=== PATIENT | female | born 1980 | race Caucasian/White ===

== ENCOUNTER 2019-03-01 08:21 | Day surgery (SDC) | payer BC ==
[~2019-03-01 08:21] MED LIST: Lactated Ringers 1,000 ML IV ONE; Lactated Ringers 1,000 ML IV SCH
[2019-03-01] MEDS ORDERED: DIPRIVAN 200 MG/20 ML IV ONE (09:35)
[2019-03-01 10:25] VITALS: O2SAT 98
[2019-03-01 11:05] VITALS: BP 108/56; PULSE 55
--- NOTE | 2019-03-17 08:49 | OP ---
PROCEDURE DATE/TIME: 03/01/2019 0939 PREOPERATIVE DIAGNOSIS: Gastroesophageal reflux disease. POSTOPERATIVE DIAGNOSES: 1) Small hiatal hernia. 2) Mild gastritis. 3) Gastroesophageal reflux disease. PROCEDURE: EGD with biopsy. PROCEDURE PERFORMED BY: Janet Farfan M.D. ESTIMATED BLOOD LOSS: Minimal. ANESTHESIA: MAC. SPECIMEN: Antral biopsy. COMPLICATIONS: None. HISTORY: This is a patient who presents with gastroesophageal reflux disease. She also has incisional ventral hernia which will be repaired at a later date as well. Risks, benefits, alternatives regarding EGD, H&P and consent have all been reviewed and confirmed. The patient was seen in the preoperative area. DESCRIPTION OF PROCEDURE: We then did a complete time out. Placed in left lateral decubitus position and carefully advanced the scope into her mouth, oropharynx down into her esophagus, stomach and duodenum. The duodenum was normal. In the stomach she did have some gastritis this was mild, slightly erythematous. Biopsy was taken with cold forceps to rule out Helicobacter pylori. Site was hemostatic. On retroflex view, we did visualize a very subtle weakness at the gastroesophageal junction consistent with a small 1 to 1.5 cm hiatal hernia. After insuring hemostasis, the scope was then carefully withdrawn. The patient does have some mild reflux changes. She does not have any obvious Renner's disease. The scope was then slowly removed. The remainder of the esophagus was normal. The patient tolerated the procedure well. There were no immediate complication. She is going to follow up with me as an outpatient to discuss the results of the biopsy and for her hernia repair.
== END 2019-03-01 11:05 | disposition home or self-care (01) ==
LOC: SDC 08:21
PROVIDERS: ATTEND Surgery
DX: K44.9 Diaphragmatic hernia without obstruction or gangrene (principal); K29.70 Gastritis, unspecified, without bleeding; K21.9 Gastro-esophageal reflux disease without esophagitis; K43.9 Ventral hernia without obstruction or gangrene
CPT/HCPCS: 84703; 88305; J2704

== ENCOUNTER 2019-03-29 08:59 | Day surgery (SDC) | payer BC ==
[~2019-03-29 08:59] MED LIST changes: -Lactated Ringers 1,000 ML IV SCH; +Sensorcaine 0.25% 10 ML ONE
[2019-03-29] MEDS ORDERED: Lactated Ringers 1,000 ML IV SCH (09:30)
[2019-03-29] MEDS ORDERED: CEFAZOLIN 2 GM-D5W BAG** 2 GM/50 ML ML IV SCH (09:30)
[2019-03-29] MEDS ORDERED: CEFAZOLIN 2 GM-D5W BAG** 2 GM/50 ML ML IV ONE (09:31)
[2019-03-29] MEDS ORDERED: Lactated Ringers 1,000 ML IV ONE (09:31)
[2019-03-29] MEDS ORDERED: Zemuron 100 MG/10 ML ONE ×2 (12:29→13:00)
[2019-03-29] MEDS ORDERED: DIPRIVAN 200 MG/20 ML IV ONE (12:29)
[2019-03-29] MEDS ORDERED: Quelicin Fliptop 200 MG/10 ML ONE (12:29)
[2019-03-29] MEDS ORDERED: SUBLIMAZE 100 MCG/2 ML ONE ×2 (12:30→13:34)
[2019-03-29] MEDS ORDERED: Decadron 4 MG INJ ONE (13:00)
[2019-03-29] MEDS ORDERED: TORAdol 30 mg Injection ONE (13:00)
[2019-03-29] MEDS ORDERED: Zofran 4 MG/2 ML VIAL ONE ×2 (13:00→13:35)
[2019-03-29] MEDS ORDERED: BRIDION 200MG/2ML IV ONE (13:00)
[2019-03-29] MEDS ORDERED: DILAUDID 2 MG INJECTION ONE (13:34)
[2019-03-29 15:19] VITALS: O2SAT 94
[2019-03-29 15:30] VITALS: BP 118/71; PULSE 92
--- NOTE | 2019-03-30 09:45 | OP ---
PROCEDURE DATE/TIME: 03/29/2019 1229 PREOPERATIVE DIAGNOSIS: Ventral incisional hernia. POSTOPERATIVE DIAGNOSIS: Ventral incisional hernia. PROCEDURE: Laparoscopic ventral incisional hernia repair without mesh. PROCEDURE PERFORMED BY: Janet Farfan M.D. COMPLICATIONS: None. ESTIMATED BLOOD LOSS: Minimal, less than 10 cc. ANESTHESIA: General. SPECIMEN: Ventral incisional hernia sac with contents. HISTORY: This is a 39 year-old female who has a prior surgical site at her inferior umbilical aspect and has a hernia here which is symptomatic. She also has some upper GI symptoms such as reflux which we are also working on as well. She had her EGD and did well with this prior. I saw the patient at bedside. We discussed her EGD results. We also confirmed her H&P and consent for her ventral hernia repair laparoscopically possible open, possible mesh. She understands all of the risks, benefits and alternatives she would like to proceed. DESCRIPTION OF PROCEDURE: She was then brought back to the operative suite. Anesthesia induced. Prepped and draped in the usual sterile fashion. Complete time out performed. OG tube inserted. Stomach desufflated. Left upper quadrant incision made for 5 port. Veress needle was used to access the abdominal cavity. Good initial insufflatory pressure. Abdomen very easily insufflated. Two more 5's placed along the left aspect of the abdomen all under visualization and clearly identified a ventral incisional hernia. She did not have any other obvious hernias except for the one hernia at her prior incision. She did however on palpation of her abdomen have a subtle diastasis at the superior aspect of her umbilicus, this region of diastasis was very small only about 1 cm and the hernia itself was very small only about 1 cm diameter as well. I then proceeded to reduce the hernia sac and contents. I resected the hernia sac and contents with a LigaSure. We upsized the left upper quadrant port to an 8 port to allow removal of the contents. I did have to cut these to allow these to be removed through the small trocar but we were able to do this very easily and remove all hernia sac and hernia sac contents out and send this to pathology, this all looked benign. Once we had the hernia neck clearly identified, this was approximately 1 to 1.2 cm. I closed this laparoscopically with 0 Prolene suture in an interrupted fashion. We closed multiple 0 Prolene figure-of-8 sutures in a left to right fashion closing this in a vertical manner. We had excellent closure with a strong repair. I do not feel she needs mesh based on the small hernia size. Due to the fact that she was slightly weak immediately above her umbilicus only for about 1 cm, I did place two interrupted sutures here to improve the strength and approximation of the muscle here. There was definitely obviously no hernia defect here. The peritoneum and fascia itself appeared to be intact with subtle diastasis here. After closing these two sites, we palpated and inspected. There was excellent closure. No remaining hernia. I did not see anything else significant on the surface of the bowels or omentum of any concern and then we were able to close the 8 port site with 1-0 Vicryl laparoscopic suture and then desufflate the abdomen and remove the remainder of our 5 ports. We irrigated the wounds, injected local, closed with buried 4-0 Monocryl, Steri-Strips, sterile dressing, belly button gauze and binder. The patient tolerated the procedure very well. There were no immediate complications. I have discussed the procedure, the results and the instructions with her family. She has also discussed the instructions with me preoperatively. She will follow up with me as an outpatient as well.
== END 2019-03-29 15:50 | disposition home or self-care (01) ==
LOC: SDC 08:59
PROVIDERS: ATTEND Surgery
DX: K43.2 Incisional hernia without obstruction or gangrene (principal); K21.9 Gastro-esophageal reflux disease without esophagitis; Z79.899 Other long term (current) drug therapy
CPT/HCPCS: 84703; J0330; J0690; J1100; J1170; J1885; J2405; J2704; J3010; L0625

== ENCOUNTER 2019-03-29 23:10 | Emergency (ER) | payer BC ==
[2019-03-29] MEDS ORDERED: Sodium Chloride 0.9% 1000 ML 1,000 ML IV STA (23:35)
[2019-03-29] MEDS ORDERED: Pepcid 20 MG VIAL IV ONE ×2 (23:35→23:43)
[2019-03-29] MEDS ORDERED: BENADRYL 50 MG/ML IV ONE (23:35)
[2019-03-29] MEDS ORDERED: Hydromorphone 1 mg/ml Ampule IV ONE (23:36)
--- NOTE | 2019-03-29 23:40 | ERPHSYRPT ---
- History of Present Illness Time Seen by Provider: 03/29/19 23:20 Source: patient Exam Limitations: no limitations Patient Subjective Stated Complaint: pt states that she had an umbilical hernia repair today, pt states that she is unable to keep pain medication down, pt states that she has taken medication with food, pt states that she took half of the pain pill to avoid getting sick, pt states that she has 9/10 pain to back Triage Nursing Assessment: pt came into ER via wheelchair, pt has 3 bandages to left abdomen with steri strips under, gauze bandage present at umbilical area, no bruising or disformation to back, vital wnl Physician History: Patient had a ventral hernia repair today. Patient was discharged home and had mid back pain when she was discharged, but since she was discharged with hydrocodone, no evaluation was performed. She can not keep her hydrocodone down and still has severe back pain. Patient does not have any bleeding or significant pain from her four incision sites. Patient did not discuss her symptoms with her surgeon. Timing/Duration: hour(s) (7) Method of Injury: unknown Quality: sharp, aching Back Pain Location: T-spine (lower), lumbar spine (upper) Severity of Pain-Max: severe Severity of Pain-Current: severe Modifying Factors: Worsens With: movement Associated Symptoms: nausea, vomiting (when taking her medication), No fever, No chills, No sweating, No urinary incontinence, No problems urinating, No light -headedness, No dizziness, No numbness in legs/feet, No weakness, No sensory/ motor loss, No tingling in legs/feet, No muscle spasms Previous symptoms: no prior history, recently seen (umbilical hernia repair today), recently treated (treated with pain medication at the hospital during her pain for recovery) Allergies/Adverse Reactions: No Known Drug Allergies Allergy (Verified 03/29/19 23:32) Hx Tetanus, Diphtheria Vaccination/Date Given: Yes Hx Influenza Vaccination/Date Given: Yes Hx Pneumococcal Vaccination/Date Given: No - Review of Systems Constitutional: No Fever, No Chills Eyes: No Eye Pain, No Vision Changes Ears, Nose, & Throat: No Throat Pain Respiratory: No Cough, No Dyspnea Cardiac: No Chest Pain, No Edema, No Syncope Abdominal/Gastrointestinal: Nausea, Vomiting, No Abdominal Pain, No Diarrhea, No Hematemesis, No Hematochezia, No Melena Genitourinary Symptoms: No Dysuria, No Hematuria, No Urinary Retention, No Flank Pain Musculoskeletal: Back Pain, Myalgias, No Neck Pain Skin: No Rash Neurological: No Dizziness, No Focal Weakness, No Headache, No Parasthesia, No Sensory Changes Psychological: No Symptoms Endocrine: No Symptoms, No Excessive Sweating Hematologic/Lymphatic: No Easy Bleeding, No Easy Bruising All Other Systems: Reviewed and Negative - Past Medical History Pertinent Past Medical History: Yes Neurological History: No Pertinent History ENT History: No Pertinent History Cardiac History: No Pertinent History Respiratory History: No Pertinent History Endocrine Medical History: No Pertinent History Musculoskeletal History: No Pertinent History GI Medical History: GERD, Hernia History: No Pertinent History Psycho-Social History: No Pertinent History Female Reproductive Disorders: No Pertinent History - Past Surgical History Past Surgical History: Yes Neuro Surgical History: No Pertinent History Cardiac: No Pertinent History Respiratory: No Pertinent History Gastrointestinal: No Pertinent History Genitourinary: No Pertinent History Musculoskeletal: No Pertinent History Female Surgical History: Tubal Ligation Other Surgical History: EGD, hernia repair - Social History Smoking Status: Never smoker Exposure to second hand smoke: No Drug Use: none Patient Lives Alone: No - Female History Hx Now: No - Nursing Vital Signs Nursing Vital Signs: Initial Vital Signs Temperature 98 F 03/29/19 23:17 Pulse Rate 69 03/29/19 23:17 Respiratory Rate 15 03/29/19 23:17 Blood Pressure 116/62 03/29/19 23:17 O2 Sat by Pulse Oximetry 98 03/29/19 23:17 Pain Scale Pain Intensity [Back] 9 Pain Intensity 9 - Physical Exam General Appearance: no apparent distress, alert Eye Exam: PERRL/EOMI, eyes nml inspection, No scleral icterus, No pale conjunctivae Ears, Nose, Throat Exam: pharynx normal, moist mucous membranes Neck Exam: normal inspection, non-tender, supple, full range of motion, No meningismus, No midline tenderness Respiratory Exam: normal breath sounds, lungs clear, airway intact, No respiratory distress, No diminished breath sounds, No accessory muscle use, No crackles/rales, No rhonchi, No wheezing, No stridor Cardiovascular Exam: regular rate/rhythm, normal heart sounds, normal peripheral pulses, capillary refill <2 sec Gastrointestinal Exam: soft, normal bowel sounds, other (4 incision sites are clean/dry/intact without any bleeding or drainage), No distention, No mass, No rebound Back Exam: normal inspection, No CVA tenderness, No vertebral tenderness, No rash Extremity Exam: normal inspection, normal range of motion, No calf tenderness, No pedal edema Neurologic Exam: alert, oriented x 3, cooperative, maintenance manager II-XII nml as tested, normal mood/affect, nml station & gait, sensation nml, No motor deficits Skin Exam: normal color, warm, dry, No rash SpO2 Interpretation: normal SpO2: 98 O2 Delivery: Room Air Ordered Tests: Active Orders 24 hr Category Date Time Status Lactic Acid Stat Lab 03/29/19 23:34 Results UA W/RFX UR CULTURE Stat Lab 03/30/19 00:46 Completed Medication Summary Discontinued Medications Generic Name Dose Route Start Last Admin Trade Name Ricardoq PRN Reason Stop Dose Admin Diphenhydramine HCl 25 mg 03/29/19 23:35 03/30/19 00:02 Benadryl 50 Mg/Ml IV 03/29/19 23:36 25 mg STAT ONE Administration Diphenhydramine HCl Confirm 03/29/19 23:43 Benadryl 50 Mg/Ml Administered 03/29/19 23:44 Dose 50 mg .ROUTE .STK-MED ONE Famotidine 20 mg 03/29/19 23:35 03/30/19 00:02 Pepcid 20 Mg Vial IV 03/29/19 23:36 20 mg STAT ONE Administration Famotidine Confirm 03/29/19 23:43 Pepcid 20 Mg Vial Administered 03/29/19 23:44 Dose 20 mg IV .STK-MED ONE Hydromorphone HCl 1 mg 03/29/19 23:36 03/30/19 00:01 Hydromorphone 1 Mg/Ml Ampule IV 03/29/19 23:37 1 mg STAT ONE Administration Hydromorphone HCl Confirm 03/29/19 23:43 Hydromorphone 1 Mg/Ml Ampule Administered 03/29/19 23:44 Dose 1 mg .ROUTE .STK-MED ONE Sodium Chloride 1,000 mls @ 999 mls/hr 03/29/19 23:35 03/30/19 01:21 Sodium Chloride 0.9% 1000 Ml IV 03/30/19 00:35 Infused .Q1H1M STA Infusion Sodium Chloride Confirm 03/29/19 23:43 Sodium Chloride 0.9% 1000 Ml Administered 03/29/19 23:44 Dose 1,000 mls @ ud .ROUTE .STK-MED ONE Lab/Rad Data: Laboratory Result Diagrams 03/29/19 00:04 03/29/19 00:04 Laboratory Results 03/30/19 03/30/19 03/29/19 Range/Units 00:46 00:00 00:04 WBC (4.0-10.5) K/mm3 RBC (4.1-5.4) M/mm3 Hgb (12.0-16.0) gm/dl Hct (35-47) % MCV (78-100) fl MCH (26-32) pg MCHC (32-36) g/dl RDW (11.5-14.0) % Plt Count (150-450) K/mm3 MPV (6-9.5) fl Gran % (36.0-66.0) % Eos # (Auto) (0-0.5) Absolute Lymphs (auto) (1.0-4.6) Absolute Monos (auto) (0.0-1.3) Lymphocytes % (24.0-44.0) % Monocytes % (0.0-12.0) % Eosinophils % (0.00-5.0) % Basophils % (0.0-0.4) % Absolute Granulocytes (1.4-6.9) Basophils # (0-0.4) PT (9.95-12.35) SECONDS INR (0.8-3.0) Sodium (137-145) mmol/L Potassium (3.5-5.1) mmol/L Chloride (98-107) mmol/L Carbon Dioxide (22-30) mmol/L Anion Gap (5-15) MEQ/L BUN (7-17) mg/dL Creatinine (0.52-1.04) mg/dL Estimated GFR ML/MIN Glucose (74-106) mg/dL Lactic Acid 1.9 (0.4-2.0) Calcium (8.4-10.2) mg/dL Total Bilirubin (0.2-1.3) mg/dL AST (14-36) U/L ALT (0-35) U/L Alkaline Phosphatase (38-126) U/L Creatine Kinase 55 (30-135) U/L Serum Total Protein (6.3-8.2) g/dL Albumin (3.5-5.0) g/dL Amylase (30-110) U/L Lipase (23-300) U/L Urine Color YELLOW (YELLOW) Urine Appearance CLEAR (CLEAR) Urine pH 8.0 (5-6) Ur Specific [place] 1.014 (1.005-1.025) Urine Protein NEGATIVE (Negative) Urine Ketones TRACE (NEGATIVE) Urine Blood NEGATIVE (0-5) Cabrera/ul Urine Nitrite NEGATIVE (NEGATIVE) Urine Bilirubin NEGATIVE (NEGATIVE) Urine Urobilinogen NEGATIVE (0-1) mg/dL Ur Leukocyte Esterase MODERATE (NEGATIVE) Urine WBC (Auto) 3-5 (0-5) /HPF Urine RBC (Auto) NONE (0-2) /HPF U Epithel Cells (Auto) RARE (FEW) /HPF Urine Bacteria (Auto) NONE (NEGATIVE) /HPF Urine Mucus (Auto) SLIGHT (NEGATIVE) /HPF Urine Culture Reflexed NO (NO) Urine Glucose NEGATIVE (NEGATIVE) mg/dL 03/29/19 03/29/19 03/29/19 Range/Units 00:04 00:04 00:04 WBC 11.3 H (4.0-10.5) K/mm3 RBC 4.02 L (4.1-5.4) M/mm3 Hgb 12.3 (12.0-16.0) gm/dl Hct 36.9 (35-47) % MCV 91.8 (78-100) fl MCH 30.6 (26-32) pg MCHC 33.3 (32-36) g/dl RDW 12.5 (11.5-14.0) % Plt Count 249 (150-450) K/mm3 MPV 9.5 (6-9.5) fl Gran % 87.6 H (36.0-66.0) % Eos # (Auto) 0 (0-0.5) Absolute Lymphs (auto) 0.98 L (1.0-4.6) Absolute Monos (auto) 0.41 (0.0-1.3) Lymphocytes % 8.7 L (24.0-44.0) % Monocytes % 3.6 (0.0-12.0) % Eosinophils % 0.0 (0.00-5.0) % Basophils % 0.1 (0.0-0.4) % Absolute Granulocytes 9.90 H (1.4-6.9) Basophils # 0.01 (0-0.4) PT 13.0 H (9.95-12.35) SECONDS INR 1.15 (0.8-3.0) Sodium 138 (137-145) mmol/L Potassium 4.3 (3.5-5.1) mmol/L Chloride 100 (98-107) mmol/L Carbon Dioxide 28 (22-30) mmol/L Anion Gap 14.0 (5-15) MEQ/L BUN 10 (7-17) mg/dL Creatinine 0.54 (0.52-1.04) mg/dL Estimated GFR > 60.0 ML/MIN Glucose 127 H (74-106) mg/dL Lactic Acid (0.4-2.0) Calcium 9.3 (8.4-10.2) mg/dL Total Bilirubin 0.60 (0.2-1.3) mg/dL AST 28 (14-36) U/L ALT 16 (0-35) U/L Alkaline Phosphatase 60 (38-126) U/L Creatine Kinase (30-135) U/L Serum Total Protein 7.1 (6.3-8.2) g/dL Albumin 3.8 (3.5-5.0) g/dL Amylase 86 (30-110) U/L Lipase 54 (23-300) U/L Urine Color (YELLOW) Urine Appearance (CLEAR) Urine pH (5-6) Ur Specific [place] (1.005-1.025) Urine Protein (Negative) Urine Ketones (NEGATIVE) Urine Blood (0-5) Cabrera/ul Urine Nitrite (NEGATIVE) Urine Bilirubin (NEGATIVE) Urine Urobilinogen (0-1) mg/dL Ur Leukocyte Esterase (NEGATIVE) Urine WBC (Auto) (0-5) /HPF Urine RBC (Auto) (0-2) /HPF U Epithel Cells (Auto) (FEW) /HPF Urine Bacteria (Auto) (NEGATIVE) /HPF Urine Mucus (Auto) (NEGATIVE) /HPF Urine Culture Reflexed (NO) Urine Glucose (NEGATIVE) mg/dL - Progress Progress: improved Progress Note: 03/30/19 01:11 Pain has resolved and patient is resting comfortably. Patient has no CVA tenderness or abdominal distension. 03/30/19 01:28 Nausea and vomiting resolved and patient has no back pain. Patient will be discharged as she has no other abnormalities on labwork and examination that requires patient to be further monitored as an inpatient or have immediate surgical evaluation. Counseled pt/family regarding: lab results, diagnosis, need for follow-up - Departure Departure Disposition: Home Clinical Impression: Acute back pain Qualifiers: Back pain location: low back pain Back pain laterality: left Sciatica presence : without sciatica Qualified Code(s): M54.5 - Low back pain Nausea and vomiting Qualifiers: Vomiting type: unspecified Vomiting Intractability: non-intractable Qualified Code(s): R11.2 - Nausea with vomiting, unspecified Condition: Good Critical Care Time: No Referrals: NOEMÍ QUINTANA MD [Primary Care Provider] - 03/30/19 MATTY MAYEN MD [ACTIVE STAFF] - 03/30/19 Instructions: Low Back Pain (DC), Upper Back Pain (DC), Postoperative Pain (DC ), Nausea and Vomiting, Adult (DC) Additional Instructions: Discharge/Care Plan ERNST TERESA was seen on 03/30/19 in the Emergency Room. The patient was counseled regarding Diagnosis,Lab results and need for follow up and when to return to the Emergency Room. Prescriptions given: Zofran Q8 hours prn for nausea Discharge Note I have spoken with the patient and significant other. I have explained the patient's condition, diagnosis and treatment plan based on the information available to me at this time. I have answered the patient's and significant other's questions and addressed any concerns. The patient and significant other have as good understanding of the patient's diagnosis, condition and treatment plan as can be expected at this point. The vital signs have been stable. The patient's condition is stable and appropriate for discharge from the emergency department. The patient will pursue further outpatient evaluation with the primary care physician or other designated or consulting physician as outlined in the discharge instructions. The patient and significant other are agreeable to this plan of care and follow-up instructions have been explained in detail. The patient and/or caregivers have received these instruction. The patient and significant other are aware that any significant change in condition or worsening of symptoms should prompt an immediate return to this or the closest emergency department or call 911. Prescriptions: Ondansetron ODT 4 MG [Zofran Odt 4 mg] 4 mg PO Q8H PRN PRN #10 tab.rapdis PRN Reason: Nausea
[2019-03-29] MEDS ORDERED: Sodium Chloride 0.9% 1000 ML 1,000 ML ONE (23:43)
[2019-03-29] MEDS ORDERED: BENADRYL 50 MG/ML ONE (23:43)
[2019-03-29] MEDS ORDERED: Hydromorphone 1 mg/ml Ampule ONE (23:43)
[2019-03-30 00:04] LABS: BASOPHIL % 0.1 % (0.0-0.4); Basophil (Absolute #) 0.01 (0-0.4); Eosinophil (Absolute #) 0 (0-0.5); Hematocrit 36.9 % (35-47); Hemoglobin 12.3 gm/dl (12.0-16.0); Lymphocyte (Absolute #) 0.98 (1.0-4.6); Lymphocytes % 8.7 % (24.0-44.0); Mean Cell Volume 91.8 fl (78-100); Mean Corpuscular Hemoglobin 30.6 pg (26-32); Mean Corpuscular Hgb Concent. 33.3 g/dl (32-36); Mean Platelet Volume 9.5 fl (6-9.5); Monocyte (Absolute #) 0.41 (0.0-1.3); Monocytes % 3.6 % (0.0-12.0); Neutrophil % 87.6 % (36.0-66.0); Platelet Count 249 K/mm3 (150-450); Red Blood Count 4.02 M/mm3 (4.1-5.4); Red Cell Distribution Width 12.5 % (11.5-14.0); White Blood Count 11.3 K/mm3 (4.0-10.5)
[2019-03-30 00:09] LABS: Lactic Acid 1.9 (0.4-2.0)
[2019-03-30 00:11] LABS: INR 1.15 (0.8-3.0)
[2019-03-30 00:22] LABS: ALBUMIN 3.8 g/dL (3.5-5.0); ALKALINE PHOSPHATASE 60 U/L (38-126); AMYLASE 86 U/L (30-110); BLOOD UREA NITROGEN 10 mg/dL (7-17); CHLORIDE 100 mmol/L (98-107); Calcium 9.3 mg/dL (8.4-10.2); Carbon Dioxide 28 mmol/L (22-30); Creatinine 1 0.54 mg/dL (0.52-1.04); Glucose 127 mg/dL (74-106); LIPASE 54 U/L (23-300); Potassium 4.3 mmol/L (3.5-5.1); SGOT/AST 28 U/L (14-36); SGPT/ALT 16 U/L (0-35); SODIUM 138 mmol/L (137-145); Total Protein 7.1 g/dL (6.3-8.2)
[2019-03-30 01:03] LABS: Appearance CLEAR (CLEAR); Bilirubin NEGATIVE (NEGATIVE); Blood NEGATIVE Ery/ul (0-5); Epithelial Cells RARE /HPF (FEW); Glucose NEGATIVE (NEGATIVE); Ketones TRACE (NEGATIVE); Leukocyte Esterase MODERATE (NEGATIVE); Mucus SLIGHT /HPF (NEGATIVE); Nitrite NEGATIVE (NEGATIVE); Protein,Urine Dip NEGATIVE (Negative); Specific Gravity 1.014 (1.005-1.025); Urobilinogen NEGATIVE mg/dL (0-1)
[2019-03-30 01:47] VITALS: BP 110/56; PULSE 70; O2SAT 95
[2019-03-30] MEDS ORDERED: ZOFRAN ODT 4 MG PO ONE (01:47)
[2019-03-30] MEDS ORDERED: ZOFRAN ODT 4 MG ONE (01:50)
== END 2019-03-30 01:51 | disposition home or self-care (01) ==
LOC: ED 23:10
DX: M54.5 Low back pain (principal); R11.2 Nausea with vomiting, unspecified; Z98.890 Other specified postprocedural states
CPT/HCPCS: 36415; 80053; 81001; 82150; 82550; 83605; 83690; 85025; 85610; 96360; 96374; 99284; J1170; J1200; Q0162